=== PATIENT | female | born 1930 | race Hispanic/Latino ===

== ENCOUNTER 2017-11-20 13:37 | Emergency (ER) | payer MEDICARE, MEDICAID ==
[2017-11-20 13:41] VITALS: RESP 18
[2017-11-20 14:41] VITALS: TEMP 98
[2017-11-20 15:14] LABS: BASO % 0.7 % (0.0-2.0); EOS # 0.2 K/uL (0.0-0.7); EOS % 4.2 % (0.0-4.0); HEMOGLOBIN 12.9 g/dL (12.0-16.0); LYMPH # 1.2 K/uL (1.0-4.3); LYMPH % 25.7 % (20.0-40.0); MEAN CELL VOLUME 88.6 fl (81.0-99.0); MEAN CORPUSCULAR HEMOGLOBIN 29.6 pg (27.0-31.0); MEAN CORPUSCULAR HGB CONC 33.4 g/dL (33.0-37.0); MEAN PLATELET VOLUME 9.6 fl (7.2-11.7); MONO # 0.5 K/uL (0.0-0.8); MONO % 11.5 % (0.0-10.0); NEUT # 2.7 K/uL (1.8-7.0); NEUT % 57.9 % (50.0-75.0); NRBC % 0.1 % (0.0-0.0); RBC 4.37 Mil/uL (3.80-5.20); RED CELL DISTRIBUTION WIDTH 14.6 % (11.5-14.5); WHITE BLOOD COUNT 4.7 K/uL (4.8-10.8)
[2017-11-20 15:23] LABS: ALB/GLOB RATIO 1.2 (1.0-2.1); ALBUMIN 3.9 g/dL (3.5-5.0); ALT/SGPT 26 U/L (9-52); AST/SGOT 30 U/L (14-36); BLOOD UREA NITROGEN 21 mg/dl (7-17); CALCIUM 9.6 mg/dL (8.4-10.2); GFR AFRICAN-AMERICAN > 60; GFR NON-AFRICAN AMERICAN > 60
[2017-11-20 15:30] LABS: PROTHROMBIN TIME 11.1 Seconds (9.8-13.1)
--- NOTE | 2017-11-20 16:17 | ED PDOC ---
HPI: Nose Bleed Time Seen by Provider: 11/20/17 13:44 Chief Complaint (Nursing): ENT Problem Chief Complaint (Provider): Nose Bleed History Per: Patient History/Exam Limitations: no limitations Onset/Duration Of Symptoms: Hrs Current Symptoms Are (Timing): Still Present Location Of Bleeding: Right Nare Severity: None Anticoagulant/Antiplatlet Use?: No Additional Complaint(s): 87 year old female presents to the ED with a spontaneous nose bleed in the right nare which began an hour ago. denies trauma, fall, recent blood thinning medication. Patient states that the believes the nose bleed was caused by stress. Past Medical History Reviewed: Historical Data, Nursing Documentation, Vital Signs Vital Signs: Last Vital Signs Temp 98 F 11/20/17 14:41 Pulse 81 11/20/17 14:41 Resp 18 11/20/17 14:41 BP 145/89 11/20/17 14:41 Pulse Ox 97 11/20/17 14:41 - Medical History PMH: Back Problems, Hypercholesterolemia, Hyperlipidemia - Surgical History Surgical History: No Surg Hx - Family History Family History: States: Unknown Family Hx - Living Arrangements Living Arrangements: With Family - Social History Current smoker - smoking cessation education provided: No Ex-Smoker (has not smoked in the last 12 months): No Alcohol: None - Immunization History Hx Tetanus Toxoid Vaccination: No Hx Influenza Vaccination: No - Home Medications Home Medications: Ambulatory Orders Medication Instructions Recorded Acetaminophen [Tylenol] 325 mg PO Q6 PRN #20 tab 06/13/16 Aspirin [Ecotrin] 81 mg PO DAILY 06/13/16 Carvedilol [Coreg] 6.25 mg PO BID 06/13/16 Naproxen [Naprosyn] 500 mg PO BID #20 tab 06/13/16 Rosuvastatin Calcium [Crestor] 20 mg PO HS 06/13/16 Valsartan/Hydrochlorothiazide 1 tab DAILY 06/13/16 [Valsartan-Hctz 320-12.5 mg Tab] metFORMIN [glucOPHAGE] 500 mg PO BID 06/13/16 Sodium Chloride [Saline Mist] 1 spr NS TID #1 bottle 11/20/17 - Allergies Allergies/Adverse Reactions: Allergies Allergy/AdvReac Type Severity Reaction Status Date / Time No Known Allergies Allergy Verified 06/13/16 10:51 Review of Systems ROS Statement: Except As Marked, All Systems Reviewed And Found Negative ENT: Positive for: Other (nose bleed) Physical Exam - Reviewed Nursing Documentation Reviewed: Yes Vital Signs Reviewed: Yes - Physical Exam Appears: Positive for: Non-toxic, No Acute Distress Head Exam: Positive for: ATRAUMATIC, NORMOCEPHALIC Skin: Positive for: Normal Color, Warm, Dry. Negative for: Pallor, Rash Eye Exam: Positive for: Normal appearance, EOMI, PERRL. Negative for: Nystagmus ENT: Positive for: Other (Dried blood in oral pharyn; left nare unremarkable.) Cardiovascular/Chest: Positive for: Regular Rate, Rhythm, Chest Non Tender. Negative for: Tachycardia Respiratory: Positive for: Normal Breath Sounds. Negative for: Wheezing, Respiratory Distress Neurologic/Psych: Positive for: Alert, Oriented - Laboratory Results Result Diagrams: 11/20/17 15:04 11/20/17 15:04 - ECG O2 Sat by Pulse Oximetry: 97 (RA) Medical Decision Making Medical Decision Makin Initial Impression 87 year old female presenting with nose bleed Initial Plan: * CMP * CBC * Partial Thromboplastin * Prothrombin Time * Reevaluation Area of blood visualized with odontoscope. 4.5mm rhinorocket and tamponad placed. Basic blood work will be ordered. Patient states that she is feeling better. Rhinorocket removed and there is no blood in the nare.Patient is medically stable and will be discharged home. Documented by Roxann Andrade acting as a scribe for Zachary Cotton III, DO. All medical record entries made by the Scribe were at my direction and personally dictated by me. I have reviewed the chart and agree that the record accurately reflects my personal performance of the history, physical exam, medical decision making, and the department course for this patient. I have also personally directed, reviewed, and agree with the discharge instructions and disposition. Disposition - Clinical Impression Clinical Impression: Epistaxis - Patient ED Disposition Is Patient to be Admitted: No Counseled Patient/Family Regarding: Studies Performed, Diagnosis - Disposition Referrals: Alex Johnson MD [Staff Provider] - Disposition: Routine/Home Disposition Time: 16:00 Condition: STABLE Additional Instructions: Use humidifier at home/ Return to ER for any worse or new bleeding. Use nasal saline spray 3x daily as directed/. See ENT for followup if bleeding returns, Dr Johnson. Prescriptions: Sodium Chloride [Saline Mist] 1 spr NS TID #1 bottle Instructions: Nosebleed (ED) Forms: [facility] (Romansh) - POA Present On Arrival: None
[2017-11-21 00:42] VITALS: BP 128/72; PULSE 72; O2SAT 99
== END 2017-11-20 17:00 | disposition home or self-care (01) ==
LOC: H.ER 13:37
DX: R04.0 Epistaxis (principal); E78.00 Pure hypercholesterolemia, unspecified; Z79.82 Long term (current) use of aspirin; Z79.84 Long term (current) use of oral hypoglycemic drugs

== ENCOUNTER 2017-11-22 13:59 | Emergency (ER) | payer MEDICARE, MEDICAID ==
[2017-11-22 14:05] VITALS: PULSE 72; TEMP 97.7
--- NOTE | 2017-11-22 14:57 | ED PDOC ---
HPI: CCC, URI, Sore Throat Time Seen by Provider: 11/22/17 14:10 Chief Complaint (Nursing): ENT Problem Chief Complaint (Provider): ENT Problem History Per: Patient History/Exam Limitations: no limitations Onset/Duration Of Symptoms: Hrs (x1 hour) Current Symptoms Are (Timing): Still Present Additional Complaint(s): 87 y/o female presents to the ED complaining of nose bleed from the right nare that started suddenly about an hour ago. She couldnt stop the bleed and thats why came to ED. Reports that had a similar episode about 2 days ago and she came here to get evaluated. A rhino rocket placed for brief period while in ER and she felt better so rocket was removed before discharge. Reports using spray in nose since then including this morning and today was first nose bleed since the last episode. Patient notes that nose bleed maybe due to stress. She also notes that she does not have a heater at home and has been using oven to keep the house warm. Denies taking blood thinners, taking anti-inflammatory medications or bleeding anywhere else. Denies any further medical complaints. PMD: Dr. Pj Pierre Past Medical History Reviewed: Historical Data, Nursing Documentation, Vital Signs Vital Signs: Last Vital Signs Temp 97.7 F 11/22/17 14:02 Pulse 72 11/22/17 14:02 Resp 16 11/22/17 14:02 BP 162/79 H 11/22/17 14:02 Pulse Ox 96 11/22/17 15:31 - Medical History PMH: Back Problems, Diabetes, HTN, Hypercholesterolemia, Hyperlipidemia - Surgical History Surgical History: No Surg Hx - Family History Family History: States: Hypertension - Social History Current smoker - smoking cessation education provided: No Alcohol: None Drugs: Denies - Immunization History Hx Tetanus Toxoid Vaccination: No Hx Influenza Vaccination: No - Home Medications Home Medications: Ambulatory Orders Medication Instructions Recorded Acetaminophen [Tylenol] 325 mg PO Q6 PRN #20 tab 06/13/16 Aspirin [Ecotrin] 81 mg PO DAILY 06/13/16 Carvedilol [Coreg] 6.25 mg PO BID 06/13/16 Naproxen [Naprosyn] 500 mg PO BID #20 tab 06/13/16 Rosuvastatin Calcium [Crestor] 20 mg PO HS 06/13/16 Valsartan/Hydrochlorothiazide 1 tab DAILY 06/13/16 [Valsartan-Hctz 320-12.5 mg Tab] metFORMIN [glucOPHAGE] 500 mg PO BID 06/13/16 Sodium Chloride [Saline Mist] 1 spr NS TID #1 bottle 11/20/17 Phenylephrine 0.5% [Sage-Synephrine 1 spry NS Q12H PRN #1 bottle 11/22/17 0.5% Nasal [place]] - Allergies Allergies/Adverse Reactions: Allergies Allergy/AdvReac Type Severity Reaction Status Date / Time No Known Allergies Allergy Verified 06/13/16 10:51 Review of Systems ROS Statement: Except As Marked, All Systems Reviewed And Found Negative (As per HPI, otherwise negative) ENT: Positive for: Other (Nose bleed) Physical Exam - Reviewed Nursing Documentation Reviewed: Yes Vital Signs Reviewed: Yes - Physical Exam Appears: Positive for: Non-toxic, No Acute Distress Head Exam: Positive for: ATRAUMATIC, NORMOCEPHALIC Skin: Positive for: Warm, Dry. Negative for: Pallor Eye Exam: Positive for: EOMI, PERRL ENT: Positive for: Pharynx Is (posterior pharynx bloody), Other (bilateral erythematous and edematous turbinates with no bleeding at this moment, no discrete source of bleeding). Negative for: Tonsillar Exudate, Tonsillar Swelling Neck: Positive for: Painless ROM, Supple Cardiovascular/Chest: Positive for: Regular Rate, Rhythm Respiratory: Negative for: Accessory Muscle Use, Respiratory Distress Extremity: Positive for: Normal ROM. Negative for: Deformity Lymphatic: Negative for: Adenopathy (cervical) Neurologic/Psych: Positive for: Alert. Negative for: Motor/Sensory Deficits - Laboratory Results Result Diagrams: 11/22/17 15:27 11/22/17 15:27 - ECG O2 Sat by Pulse Oximetry: 96 (RA) Pulse Ox Interpretation: Normal Medical Decision Making Medical Decision Making: Time: 14:37 Initial Impression: Nose Bleed Plan: Type and Screen CMP CBC w/ differential Partial Thromboplastin Time Prothrombin Time IV Insertion (Saline Lock) --Currently nose bleed has stopped will apply pincers on nose --Check labs to assess for blood loss 345p Labs unremarkable On reevaluation, pt's bleeding has not restarted. DW pt use of neosynephrine. Pt did not take her BP meds today. Advised use of neosynephrine after checking that BP is normal. Also needs ENT follow up LISBETH Scribe Attestation: Documented by Amrit Bonilla acting as a scribe for Dara Aggarwal MD. Scribe Attestation: All medical record entries made by the Scribe were at my direction and personally dictated by me. I have reviewed the chart and agree that the record accurately reflects my personal performance of the history, physical exam, medical decision making, and the department course for this patient. I have also personally directed, reviewed, and agree with the discharge instructions and disposition. Disposition - Clinical Impression Clinical Impression: Epistaxis Counseled Patient/Family Regarding: Studies Performed, Diagnosis, Need For Followup, Rx Given - Disposition Referrals: Alex Johnson MD [Staff Provider] - (CALL TODAY TO SETUP FOLLOW UP APPOINTMENT SOON POSSIBLE) Ulysses Pierre DO [[facility]] - (FOLLOW UP WITH YOUR PMD THIS WEEK TO SEE HOW YOU ARE DOING) Disposition: Routine/Home Disposition Time: 15:51 Condition: GOOD Prescriptions: Phenylephrine 0.5% [Sage-Synephrine 0.5% Nasal [place]] 1 spry NS Q12H PRN #1 bottle PRN Reason: Nasal Congestion Instructions: Nosebleed (ED), Phenylephrine (Into the nose)
[2017-11-22 15:31] LABS: BASO % 0.6 % (0.0-2.0); EOS # 0.2 K/uL (0.0-0.7); EOS % 3.5 % (0.0-4.0); HEMOGLOBIN 12.9 g/dL (12.0-16.0); LYMPH # 1.4 K/uL (1.0-4.3); LYMPH % 30.3 % (20.0-40.0); MEAN CELL VOLUME 88.9 fl (81.0-99.0); MEAN CORPUSCULAR HEMOGLOBIN 29.4 pg (27.0-31.0); MEAN CORPUSCULAR HGB CONC 33.1 g/dL (33.0-37.0); MEAN PLATELET VOLUME 9.4 fl (7.2-11.7); MONO # 0.5 K/uL (0.0-0.8); MONO % 11.7 % (0.0-10.0); NEUT # 2.4 K/uL (1.8-7.0); NEUT % 53.9 % (50.0-75.0); NRBC % 0.1 % (0.0-0.0); RBC 4.37 Mil/uL (3.80-5.20); RED CELL DISTRIBUTION WIDTH 14.5 % (11.5-14.5); WHITE BLOOD COUNT 4.5 K/uL (4.8-10.8)
[2017-11-22 15:40] LABS: ALB/GLOB RATIO 1.2 (1.0-2.1); ALBUMIN 4.1 g/dL (3.5-5.0); ALT/SGPT 28 U/L (9-52); AST/SGOT 29 U/L (14-36); BLOOD UREA NITROGEN 17 mg/dl (7-17); CALCIUM 9.5 mg/dL (8.4-10.2); GFR AFRICAN-AMERICAN > 60; GFR NON-AFRICAN AMERICAN > 60
[2017-11-22 15:44] LABS: PARTIAL THROMBOPLASTIN TIME 28.6 Seconds (25.6-37.1); PROTHROMBIN TIME 11.5 Seconds (9.8-13.1)
[2017-11-22 19:37] VITALS: BP 134/78; RESP 18; O2SAT 100
== END 2017-11-22 17:00 | disposition home or self-care (01) ==
LOC: H.ER 13:59
DX: R04.0 Epistaxis (principal); I10 Essential (primary) hypertension; E11.9 Type 2 diabetes mellitus without complications; E78.00 Pure hypercholesterolemia, unspecified; Z79.82 Long term (current) use of aspirin; Z79.84 Long term (current) use of oral hypoglycemic drugs

== ENCOUNTER 2018-01-08 16:37 | Inpatient (IN) | payer MEDICARE, MEDICAID ==
[2018-01-08 16:38] VITALS: BMI 26.1
[2018-01-08] MEDS ORDERED: Morphine 4 MG/ML VIAL IVP STA ×2 (17:48→21:14)
[2018-01-08] MEDS ORDERED: Morphine 4 MG/ML VIAL ONE ×2 (17:50→20:00)
[2018-01-08 18:01] LABS: BASO # 0.1 K/uL (0.0-0.2); EOS # 0.1 K/uL (0.0-0.7); HEMOGLOBIN 13.3 g/dL (12.0-16.0); LYMPH # 1.6 K/uL (1.0-4.3); LYMPH % 24.6 % (20.0-40.0); MEAN CELL VOLUME 89.6 fl (81.0-99.0); MEAN CORPUSCULAR HEMOGLOBIN 29.9 pg (27.0-31.0); MEAN CORPUSCULAR HGB CONC 33.3 g/dL (33.0-37.0); MEAN PLATELET VOLUME 9.5 fl (7.2-11.7); MONO # 0.7 K/uL (0.0-0.8); MONO % 11.2 % (0.0-10.0); NEUT # 4.1 K/uL (1.8-7.0); NEUT % 61.2 % (50.0-75.0); NRBC % 0.1 % (0.0-0.0); RBC 4.46 Mil/uL (3.80-5.20); RED CELL DISTRIBUTION WIDTH 14.6 % (11.5-14.5); WHITE BLOOD COUNT 6.6 K/uL (4.8-10.8)
[2018-01-08 18:10] LABS: ALB/GLOB RATIO 1.1 (1.0-2.1); ALBUMIN 4.3 g/dL (3.5-5.0); CALCIUM 9.9 mg/dL (8.4-10.2); GFR AFRICAN-AMERICAN > 60; GFR NON-AFRICAN AMERICAN > 60
[2018-01-08 18:15] LABS: ALT/SGPT 22 U/L (9-52); AST/SGOT 37 U/L (14-36); BLOOD UREA NITROGEN 19 mg/dl (7-17)
--- NOTE | 2018-01-08 18:20 | ED PDOC ---
Lower Extremity Pain/Injury Time Seen by Provider: 01/08/18 16:46 Chief Complaint (Nursing): Lower Extremity Problem/Injury Chief Complaint (Provider): Left Leg Pain History Per: Patient History/Exam Limitations: no limitations Onset/Duration Of Symptoms: Sudden Onset Current Symptoms Are (Timing): Still Present Additional Complaint(s): 87 year old female presents to the emergency department post fall complaining of left leg pain. The patient states that she fell while stepping off of the sidewalk and immediately felt a sudden onset of pain. She reports that she also hit her head against her eye glasses. Denies loss of consciousness. As per patient, bystanders helped her up and helped her to cross the street then she got on the bus and went home. She reports that while at home she noticed increased pain and swelling to the left leg and hs ewas unable to walk on the leg. Denies numbness, weakness. PMD: Dr. Pj Pierre Past Medical History Reviewed: Historical Data, Nursing Documentation, Vital Signs Vital Signs: Last Vital Signs Temp 96.9 F L 01/08/18 16:39 Pulse 78 01/08/18 16:39 Resp 16 01/08/18 16:39 BP 162/93 H 01/08/18 16:39 Pulse Ox 100 01/08/18 16:39 - Medical History PMH: Back Problems, Diabetes, HTN, Hypercholesterolemia, Hyperlipidemia - Surgical History Surgical History: No Surg Hx - Family History Family History: States: Hypertension - Social History Current smoker - smoking cessation education provided: No Ex-Smoker (has not smoked in the last 12 months): No Alcohol: None Drugs: Denies - Immunization History Hx Tetanus Toxoid Vaccination: No Hx Influenza Vaccination: No - Home Medications Home Medications: Ambulatory Orders Medication Instructions Recorded Carvedilol [Coreg] 6.25 mg PO BID 06/13/16 Rosuvastatin Calcium [Crestor] 20 mg PO HS 06/13/16 Valsartan/Hydrochlorothiazide 1 tab PO DAILY 06/13/16 [Valsartan-Hctz 320-12.5 mg Tab] metFORMIN [glucOPHAGE] 500 mg PO DAILY 06/13/16 - Allergies Allergies/Adverse Reactions: Allergies Allergy/AdvReac Type Severity Reaction Status Date / Time No Known Allergies Allergy Verified 11/27/17 14:01 Review of Systems ROS Statement: Except As Marked, All Systems Reviewed And Found Negative Musculoskeletal: Positive for: Leg Pain (left) Physical Exam - Reviewed Nursing Documentation Reviewed: Yes Vital Signs Reviewed: Yes - Physical Exam Appears: Positive for: In Acute Distress (moderate painful) Head Exam: Negative for: ATRAUMATIC (small abrasion on left temporal forehead with early contusion) Skin: Positive for: Warm, Dry Eye Exam: Positive for: EOMI, PERRL ENT: Negative for: Pharyngeal Erythema, Tonsillar Exudate Neck: Positive for: Painless ROM, Supple Cardiovascular/Chest: Positive for: Regular Rate, Rhythm. Negative for: Murmur Respiratory: Positive for: Normal Breath Sounds. Negative for: Wheezing Gastrointestinal/Abdominal: Positive for: Soft. Negative for: Tenderness Back: Positive for: Normal Inspection. Negative for: Decreased ROM Extremity: Positive for: Other (gross marked edema to superior aspect of left lower extremity-tenderness to palpation at site; No tenderness to palpation of patellar or laxity.). Negative for: Normal ROM (flexion and extension at knee elicits exquisite pain) Lymphatic: Negative for: Adenopathy Neurologic/Psych: Positive for: Alert. Negative for: Motor/Sensory Deficits - Laboratory Results Result Diagrams: 01/08/18 17:05 01/08/18 17:49 - ECG O2 Sat by Pulse Oximetry: 100 (RA) Pulse Ox Interpretation: Normal Medical Decision Making Medical Decision Makin Initial Impression 87 y/o female presenting with left lower leg injury r/o fracture Vs. Strain Vs. Calf Tear vs hematoma Initial Plan: * Type and Screen * CT EXT lower w/o Contrast * CMP * Creatinine Phosphokinase * CBC * Partial thromboplastin * Prothrombin Time * RAD LT Knee * Morphine 4mg IVP * Tylenol 975mg PO * RAD Tibia Fibula LT * Reevaluation 1900 Pt reporting minimal relief with IV morphine. Increasing swelling and pain. Concern for compartment syndrome. Consulted Dr Sears who evaluated pt in ER and performed compartment pressure measurements and attempt of needle aspiration of hematoma. 2036 EXAM: CT Left Lower Extremity Without Intravenous Contrast CLINICAL HISTORY: 87 years old, female; Signs and symptoms; Other: R/O FX; Additional info: Left knee/tibia/fibula injury R/O fracture TECHNIQUE: Axial computed tomography images of the left lower extremity without intravenous contrast. All CT scans at this facility use one or more dose reduction techniques, viz.: automated exposure control; ma/kV adjustment per patient size (including targeted exams where dose is matched to indication; i.e. head); or iterative reconstruction technique. Coronal and sagittal reformatted images were created and reviewed. COMPARISON: CR - TIBIA FIBULA LEFT 2018-01-08 16:56 FINDINGS: Bones/joints: No acute fracture. No dislocation. No significant knee joint effusion. Soft tissues: Large hematoma along lower leg, roughly 8.8 x 5.7 x 17.5 cm. Moderate stranding within adjacent soft tissues. Varicosities. Minimal atherosclerotic calcifications. IMPRESSION: 1. No fracture. 2. Soft tissue hematoma. Suggest followup to resolution to exclude underlying pathology. Pt to be hospitalized for reevaluation of possible expanding hematoma. [facility]. Documented by Roxann Andrade acting as a scribe for Dara Aggarwal MD. All medical record entries made by the Scribe were at my direction and personally dictated by me. I have reviewed the chart and agree that the record accurately reflects my personal performance of the history, physical exam, medical decision making, and the department course for this patient. I have also personally directed, reviewed, and agree with the discharge instructions and disposition. Disposition - Clinical Impression Clinical Impression: Hematoma of left lower extremity, Intractable pain Counseled Patient/Family Regarding: Studies Performed, Diagnosis - Disposition Disposition Time: 19:45 Condition: GUARDED - Pt Status Changed To: Hospital Disposition Of: Observation - POA Present On Arrival: Falls Or Trauma
[2018-01-08 18:33] LABS: PARTIAL THROMBOPLASTIN TIME 28.2 Seconds (25.6-37.1); PROTHROMBIN TIME 11.6 Seconds (9.8-13.1)
[2018-01-08] MEDS ORDERED: Povidone Iodine Topical 10% Sol ONE (20:00)
[2018-01-08] MEDS ORDERED: Lidocaine 1% Inj (20ml) ONE (20:09)
[2018-01-08] MEDS ORDERED: ceFAZolin 1 GM in Sodium Chloride 0.9% 100 ML IV STA (20:22)
--- NOTE | 2018-01-08 20:37 | CT ---
EXAM: CT Left Lower Extremity Without Intravenous Contrast CLINICAL HISTORY: 87 years old, female; Signs and symptoms; Other: R/O FX; Additional info: Left knee/tibia/fibula injury R/O fracture TECHNIQUE: Axial computed tomography images of the left lower extremity without intravenous contrast. All CT scans at this facility use one or more dose reduction techniques, viz.: automated exposure control; ma/kV adjustment per patient size (including targeted exams where dose is matched to indication; i.e. head); or iterative reconstruction technique. Coronal and sagittal reformatted images were created and reviewed. COMPARISON: CR - TIBIA FIBULA LEFT 2018-01-08 16:56 FINDINGS: Bones/joints: No acute fracture. No dislocation. No significant knee joint effusion. Soft tissues: Large hematoma along lower leg, roughly 8.8 x 5.7 x 17.5 cm. Moderate stranding within adjacent soft tissues. Varicosities. Minimal atherosclerotic calcifications. IMPRESSION: 1. No fracture. 2. Soft tissue hematoma. Suggest followup to resolution to exclude underlying pathology.
--- NOTE | 2018-01-08 21:26 | CP.PCM.CON ---
History of Present Illness - History of Present Illness History of Present Illness: ID: 87 yo female CC: fall on L lower extremity, with evidence of non expansile hematoma HPI- ptsustained a fall off the curb earlier today. Ptpresents to [facility] ER with evidence of discomfort L foreleg, and evidence of hematoma in lateral compartment. pt presents at this encounter with her sons; Pts pain is well controlled PAIN IS NOT OUT OF PROPORTIONAND THERE IS no INCREASED PAIN WITH PASSIVE FLEXION/DORSIFLEXION OF THE l ANKLE. CALLED BY dR Robledo TO [facility] IN er, Past Patient History - Infectious Disease Hx of Infectious Diseases: None - Past Social History Alcohol: None Drugs: Denies - CARDIAC Hx Hypercholesterolemia: Yes Hx Hypertension: Yes - ENDOCRINE/METABOLIC Hx Diabetes Mellitus Type 2: Yes - PSYCHIATRIC Hx Substance Use: No - SURGICAL HISTORY Hx Surgeries: No - ANESTHESIA Hx Anesthesia: No Hx Anesthesia Reactions: No Meds Allergies/Adverse Reactions: Allergies Allergy/AdvReac Type Severity Reaction Status Date / Time No Known Allergies Allergy Verified 11/27/17 14:01 - Medications Medications: Current Medications Cefazolin Sodium 1 gm/ Sodium (Chloride) 100 mls @ 100 mls/hr IV STAT STA PRN Reason: Protocol Stop: 01/08/18 21:21 Last Admin: 01/08/18 20:29 Dose: 100 mls/hr Morphine Sulfate (Morphine) 4 mg IVP STAT STA Stop: 01/08/18 19:51 Last Admin: 01/08/18 21:05 Dose: 4 mg Physical Exam - Additional Findings Additional findings: sYSTEMIC EXAM- WNL mUSCULOSKELTAL STANCE/GAIT- DEFRRED PT WITH SWELLING ON PROX TO MID LATERAL ASPECT OF l FORELEG n/v INTACT DORSALIS PEDIS PULSE PALPABLE NO INCREASED PAIN ON PASSIVE FLEXION/DORSIFLEXION Results - Vital Signs Recent Vital Signs: Last Vital Signs Temp 96.9 F L 01/08/18 16:39 Pulse 61 01/08/18 20:50 Resp 18 01/08/18 20:50 BP 135/88 01/08/18 20:50 Pulse Ox 97 01/08/18 20:50 - Labs Result Diagrams: 01/08/18 17:05 01/08/18 17:49 Labs: Laboratory Results - last 24 hr 01/08/18 01/08/18 01/08/18 17:05 17:40 17:49 WBC 6.6 RBC 4.46 Hgb 13.3 Hct 39.9 MCV 89.6 MCH 29.9 MCHC 33.3 RDW 14.6 H Plt Count 194 MPV 9.5 Neut % (Auto) 61.2 Lymph % (Auto) 24.6 [place] % (Auto) 11.2 H Eos % (Auto) 2.0 Baso % (Auto) 1.0 Neut # (Auto) 4.1 Lymph # (Auto) 1.6 [place] # (Auto) 0.7 Eos # (Auto) 0.1 Baso # (Auto) 0.1 PT INR APTT Sodium 144 Potassium 4.1 Chloride 107 Carbon Dioxide 25 Anion Gap 16 BUN 19 H Creatinine 0.6 L Est GFR ( Amer) > 60 Est GFR (Non-Af Amer) > 60 POC Glucose (mg/dL) Random Glucose 93 Calcium 9.9 Total Bilirubin 0.8 AST 37 H D ALT 22 Alkaline Phosphatase 64 Total Creatine Kinase 77 Total Protein 8.3 H Albumin 4.3 Globulin 4.0 H Albumin/Globulin Ratio 1.1 Blood Type O POSITIVE Antibody Screen Negative BBK History Checked Patient has bt 01/08/18 01/08/18 17:49 19:40 WBC RBC Hgb Hct MCV MCH MCHC RDW Plt Count MPV Neut % (Auto) Lymph % (Auto) [place] % (Auto) Eos % (Auto) Baso % (Auto) Neut # (Auto) Lymph # (Auto) [place] # (Auto) Eos # (Auto) Baso # (Auto) PT 11.6 INR 1.0 APTT 28.2 Sodium Potassium Chloride Carbon Dioxide Anion Gap BUN Creatinine Est GFR ( Amer) Est GFR (Non-Af Amer) POC Glucose (mg/dL) 88 Random Glucose Calcium Total Bilirubin AST ALT Alkaline Phosphatase Total Creatine Kinase Total Protein Albumin Globulin Albumin/Globulin Ratio Blood Type Antibody Screen BBK History Checked - Impressions Impression: xRAY- EVIDENCE OF SOFT TISSUE SWELLING NO GALEN FRACTURE OR DISLOCATION ct RESULTS- REVEAL EVIDENCE OF LARGE HEMATOMA WITHOUT FX + Assessment & Plan - Assessment and Plan (Free Text) Assessment: A- soft tissue hematoma/ no evidence for fx P- Under sterile conditions, after having obtained informed consent, compartment pressure monitoring was obtained in the anterior, lateral, and superficial and deep posterior comparmtnets of the L foreleg. Using the [employer] compartment pressure monitor, and after euilibrating the device to 0mm hg prior to each measurement, the comparmtnet pressures were essentially within normal limits ( anterior comptment-14mm/ lateral compartment, after accurate [id number] / approx 29mm/ posterior compartment approx 24 mm hg The compartment pressure readins agree wth the clinical findings which are: negative for acute compartment syndrome. No increase pain on passive flexion/ dorsiflexion/ pulses palpl;e /good capillary refill Pt without exqusite tenderness or with pain out of proportion IMP_ hematoma L foreleg- compression wrap applied, ice/possibility of incision/ drainage of hematoma discussed with family, after medical clearance and stabilization
--- NOTE | 2018-01-08 22:37 | US ---
EXAM: US Duplex Left Lower Extremity Veins CLINICAL HISTORY: 87 years old, female; Injury or trauma; Fall; Initial encounter; Puncture wound; Left; Lower extremity, lower leg level; Vessel not specified; Injury date: 01/08/2018; Additional info: Pain/swelling TECHNIQUE: Real-time ultrasound scan of the veins of the left lower extremity with color Doppler flow, spectral waveform analysis and compression. COMPARISON: No relevant prior studies available. FINDINGS: Deep veins: Normal color and spectral Doppler flow. Normal compressibility. No deep vein thrombosis from common femoral to popliteal vein. Superficial veins: No thrombosis. Soft tissues: No popliteal cyst. IMPRESSION: 1. No evidence of DVT within LEFT lower extremity.
--- NOTE | 2018-01-08 22:40 | US ---
EXAM: US Duplex Left Upper Extremity Arteries CLINICAL HISTORY: 87 years old, female; Injury or trauma; Fall; Initial encounter; Wound, open; Left; Lower extremity, lower leg level; Vessel not specified; Injury date: ; Additional info: Pain/swelling TECHNIQUE: Real-time ultrasound scan of the arteries of the left upper extremity with 2-D gongora scale, color Doppler flow and spectral waveform analysis. COMPARISON: No relevant prior studies available. FINDINGS: [employer]: 104 cm/s, triphasic SFA proximal: 89 cm/s, triphasic SFA mid: 70 cm/s, triphasic SFA distal: 71 cm/s, triphasic Popliteal: 70 cm/s, triphasic GURU: 50 cm/s, triphasic DRAWING IN HAND: 73 cm/s, triphasic DPA: 45 cm/s, triphasic IMPRESSION: No occlusion or significant stenosis.
[2018-01-09] MEDS ORDERED: Oxycodone/Acetaminophen 5/325 mg Tab PO PRN (00:18)
[2018-01-09] MEDS: Insulin Lispro (humaLOG) 100 Units/ml Inj SC SCH ×4 (07:06→22:40)
[2018-01-09 08:19] LABS: ALB/GLOB RATIO 1.1 (1.0-2.1); ALBUMIN 3.8 g/dL (3.5-5.0); ALT/SGPT 23 U/L (9-52); AST/SGOT 25 U/L (14-36); BLOOD UREA NITROGEN 18 mg/dl (7-17); CALCIUM 9.5 mg/dL (8.4-10.2); GFR AFRICAN-AMERICAN > 60; GFR NON-AFRICAN AMERICAN > 60
[2018-01-09 08:27] LABS: HEMOGLOBIN 11.6 g/dL (12.0-16.0); MEAN CELL VOLUME 89.1 fl (81.0-99.0); MEAN CORPUSCULAR HEMOGLOBIN 29.7 pg (27.0-31.0); MEAN CORPUSCULAR HGB CONC 33.3 g/dL (33.0-37.0); RBC 3.92 Mil/uL (3.80-5.20); RED CELL DISTRIBUTION WIDTH 14.1 % (11.5-14.5); WHITE BLOOD COUNT 6.4 K/uL (4.8-10.8)
[2018-01-09 08:30] LABS: INR 1.1 (0.9-1.2); PARTIAL THROMBOPLASTIN TIME 27.6 Seconds (25.6-37.1)
--- NOTE | 2018-01-09 08:58 | RAD ---
HISTORY: Evaluation COMPARISON: No prior. FINDINGS: LUNGS: Elevation right hemidiaphragm possibly due to eventration. Suspect bibasilar atelectasis. PLEURA: No significant pleural effusion identified, no pneumothorax apparent. CARDIOVASCULAR: Normal. OSSEOUS STRUCTURES: No significant abnormalities. VISUALIZED UPPER ABDOMEN: Normal. OTHER FINDINGS: None. IMPRESSION: Elevation right hemidiaphragm possibly due to eventration. Suspect bibasilar atelectasis.
--- NOTE | 2018-01-09 09:16 | RAD ---
PROCEDURE: Left Knee Radiographs. HISTORY: Pain. COMPARISON: None. FINDINGS: BONES: No evidence of acute displaced fracture nor dislocation. JOINTS: Mild degenerative osteoarthritis. Prominent anterior superior and anterior inferior patella enthesophyte. JOINT EFFUSION: No significant suprapatellar joint effusion OTHER FINDINGS: None. IMPRESSION: Mild DJD. No evidence of acute displaced fracture nor dislocation.
--- NOTE | 2018-01-09 09:20 | RAD ---
PROCEDURE: Radiographs of the left tibia and fibula. HISTORY: LEFT leg pain s/p fall COMPARISON: None available. TECHNIQUE: Frontal and lateral views obtained. FINDINGS: BONES: No fracture or destructive lesion. JOINT SPACES: Mild degenerative changes right knee and ankle. OTHER FINDINGS: There appears to be some mild infiltration changes within the subcutaneous tissues possibly related to trauma. Rule out cellulitis or edema related to vascular etiology. Clinical correlation recommended IMPRESSION: No evidence of acute displaced fracture nor dislocation. Mild infiltration changes subcutaneous tissues could be related to trauma. Clinical correlation recommended as detailed above.
--- NOTE | 2018-01-09 10:55 | CP.PCM.HP ---
History of Present Illness - History of Present Illness History of Present Illness: CC: Fall History of Present Illness: An 87 year old female with H/O HTN, DMII and dyslipidemia presents to the emergency department post fall complaining of left leg pain. The patient states that she fell while stepping of the sidewalk and immediately felt a sudden onset of pain. She reports that she also hit her head against her eye glasses. Denies loss of consciousness. As per patient, bystanders helped her up and helped her to cross the street then she got on the bus and went home. She reports that while at home she noticed increased pain and swelling to the left leg and she was unable to walk on the leg. Denies numbness, weakness. Present on Admission - Present on Admission Any Indicators Present on Admission: No Review of Systems - Review of Systems All systems: reviewed and no additional remarkable complaints except - Musculoskeletal Musculoskeletal: As Per HPI Past Patient History - Infectious Disease Hx of Infectious Diseases: None - Past Medical History & Family History Past Medical History?: Yes Past Family History: Reviewed and not pertinent - Past Social History Smoking Status: Never Smoked Alcohol: None Drugs: Denies - CARDIAC Hx Cardiac Disorders: Yes Hx Hypercholesterolemia: Yes Hx Hypertension: Yes - PULMONARY Hx Respiratory Disorders: No - NEUROLOGICAL Hx Neurological Disorder: No - HEENT Hx HEENT Problems: No - RENAL Hx Chronic Kidney Disease: No - ENDOCRINE/METABOLIC Hx Endocrine Disorders: Yes Hx Diabetes Mellitus Type 2: Yes - HEMATOLOGICAL/ONCOLOGICAL Hx Blood Disorders: No - INTEGUMENTARY Hx Dermatological Problems: No - MUSCULOSKELETAL/RHEUMATOLOGICAL Hx Musculoskeletal Disorders: Yes Hx Back Pain: Yes Hx Falls: Yes - GASTROINTESTINAL Hx Gastrointestinal Disorders: No - GENITOURINARY/GYNECOLOGICAL Hx Genitourinary Disorders: No - PSYCHIATRIC Hx Psychophysiologic Disorder: No Hx Substance Use: No - SURGICAL HISTORY Hx Surgeries: No - ANESTHESIA Hx Anesthesia: No Hx Anesthesia Reactions: No Hx Malignant Hyperthermia: No Meds Allergies/Adverse Reactions: Allergies Allergy/AdvReac Type Severity Reaction Status Date / Time No Known Allergies Allergy Verified 11/27/17 14:01 Physical Exam - Constitutional Appears: No Acute Distress, In Acute Distress - Head Exam Head Exam: ATRAUMATIC, NORMAL INSPECTION, NORMOCEPHALIC - Eye Exam Eye Exam: EOMI, Normal appearance, PERRL Pupil Exam: NORMAL ACCOMODATION, PERRL - ENT Exam ENT Exam: Mucous Membranes Moist, Normal Exam - Neck Exam Neck exam: Positive for: Full Rom, Normal Inspection - Respiratory Exam Respiratory Exam: Clear to Auscultation Bilateral, NORMAL BREATHING PATTERN - Cardiovascular Exam Cardiovascular Exam: REGULAR RHYTHM, +S1, +S2 - GI/Abdominal Exam GI & Abdominal Exam: Normal Bowel Sounds, Soft. absent: Tenderness - Extremities Exam Additional comments: Swelling of the Left Leg with Compression bandage, and Immobilized with Intact Neuro-vacular function distally. - Back Exam Back exam: NORMAL INSPECTION - Neurological Exam Neurological exam: Alert, CN II-XII Intact, Normal Gait, Oriented x3, Reflexes Normal - Psychiatric Exam Psychiatric exam: Normal Affect, Normal Mood - Skin Skin Exam: Dry, Intact, Normal Color, Warm Results - Vital Signs Recent Vital Signs: Last Vital Signs Temp 98 F 01/09/18 08:34 Pulse 67 01/09/18 10:10 Resp 20 01/09/18 08:34 BP 131/65 01/09/18 10:10 Pulse Ox 96 01/09/18 08:34 - Labs Result Diagrams: 01/09/18 06:55 01/09/18 06:55 Labs: Laboratory Results - last 24 hr 01/08/18 01/08/18 01/08/18 17:05 17:40 17:49 WBC 6.6 RBC 4.46 Hgb 13.3 Hct 39.9 MCV 89.6 MCH 29.9 MCHC 33.3 RDW 14.6 H Plt Count 194 MPV 9.5 Neut % (Auto) 61.2 Lymph % (Auto) 24.6 Dixie % (Auto) 11.2 H Eos % (Auto) 2.0 Baso % (Auto) 1.0 Neut # (Auto) 4.1 Lymph # (Auto) 1.6 Dixie # (Auto) 0.7 Eos # (Auto) 0.1 Baso # (Auto) 0.1 PT INR APTT Sodium 144 Potassium 4.1 Chloride 107 Carbon Dioxide 25 Anion Gap 16 BUN 19 H Creatinine 0.6 L Est GFR ( Amer) > 60 Est GFR (Non-Af Amer) > 60 POC Glucose (mg/dL) Random Glucose 93 Calcium 9.9 Magnesium Total Bilirubin 0.8 AST 37 H D ALT 22 Alkaline Phosphatase 64 Total Creatine Kinase 77 Total Protein 8.3 H Albumin 4.3 Globulin 4.0 H Albumin/Globulin Ratio 1.1 Blood Type O POSITIVE Antibody Screen Negative BBK History Checked Patient has bt 03/24/18 03/24/18 03/25/18 17:49 19:40 06:55 WBC 6.4 RBC 3.92 Hgb 11.6 L Hct 35.0 MCV 89.1 MCH 29.7 MCHC 33.3 RDW 14.1 Plt Count 172 MPV Neut % (Auto) Lymph % (Auto) Dixie % (Auto) Eos % (Auto) Baso % (Auto) Neut # (Auto) Lymph # (Auto) Dixie # (Auto) Eos # (Auto) Baso # (Auto) PT 11.6 INR 1.0 APTT 28.2 Sodium Potassium Chloride Carbon Dioxide Anion Gap BUN Creatinine Est GFR ( Amer) Est GFR (Non-Af Amer) POC Glucose (mg/dL) 88 Random Glucose Calcium Magnesium Total Bilirubin AST ALT Alkaline Phosphatase Total Creatine Kinase Total Protein Albumin Globulin Albumin/Globulin Ratio Blood Type Antibody Screen BBK History Checked 01/09/18 01/09/18 06:55 06:55 WBC RBC Hgb Hct MCV MCH MCHC RDW Plt Count MPV Neut % (Auto) Lymph % (Auto) Dixie % (Auto) Eos % (Auto) Baso % (Auto) Neut # (Auto) Lymph # (Auto) Dixie # (Auto) Eos # (Auto) Baso # (Auto) PT 12.0 INR 1.1 APTT 27.6 Sodium 142 Potassium 3.8 Chloride 105 Carbon Dioxide 27 Anion Gap 14 BUN 18 H Creatinine 0.6 L Est GFR ( Amer) > 60 Est GFR (Non-Af Amer) > 60 POC Glucose (mg/dL) Random Glucose 121 H Calcium 9.5 Magnesium 1.9 Total Bilirubin 0.7 AST 25 ALT 23 Alkaline Phosphatase 57 Total Creatine Kinase Total Protein 7.1 Albumin 3.8 Globulin 3.4 Albumin/Globulin Ratio 1.1 Blood Type Antibody Screen BBK History Checked - EKG Data EKG Interpreted by: Myself EKG shows normal: Sinus rhythm, [place], Intervals, QRS complexes, ST-T waves Rate: Bradycardia - Imaging and Cardiology CT Left Leg: Status: Report reviewed by me Additional comment: FINDINGS: Bones/joints: No acute fracture. No dislocation. No significant knee joint effusion. Soft tissues: Large hematoma along lower leg, roughly 8.8 x 5.7 x 17.5 cm. Moderate stranding within adjacent soft tissues. Varicosities. Minimal atherosclerotic calcifications. IMPRESSION: 1. No fracture. 2. Soft tissue hematoma. Suggest followup to resolution to exclude underlying pathology. Chest x-ray Status: Report reviewed by me Additional comment: MPRESSION: Elevation right hemidiaphragm possibly due to eventration. Suspect bibasilar atelectasis. Assessment & Plan (1) Hematoma of left lower extremity Assessment and Plan: Neurovascular Check Q2hrs Pain Control For Incision and Evacuation of Large Hematoma by rtho Ortho input appreciated Cleared for the Surgery with Acceptable Risk Status: Acute Priority: Medium (2) Intractable pain Assessment and Plan: IV Morphin PRN Status: Acute Priority: Low (3) Diabetes mellitus Status: Chronic (4) Hypertension Status: Chronic (5) Dyslipidemia Status: Chronic Priority: Low
--- NOTE | 2018-01-09 12:43 | CARD ---
APPROVED REPORT EKG Measurement Heart [id number] <Conclusion> Sinus bradycardia Moderate voltage criteria for LVH, may be normal variant Borderline ECG
[2018-01-10 05:51] LABS: HEMOGLOBIN 11.5 g/dL (12.0-16.0); MEAN CELL VOLUME 88.8 fl (81.0-99.0); MEAN CORPUSCULAR HEMOGLOBIN 30.2 pg (27.0-31.0); RBC 3.8 Mil/uL (3.80-5.20); RED CELL DISTRIBUTION WIDTH 14.2 % (11.5-14.5); WHITE BLOOD COUNT 6.9 K/uL (4.8-10.8)
[2018-01-10 06:14] LABS: BLOOD UREA NITROGEN 22 mg/dl (7-17); CALCIUM 9.6 mg/dL (8.4-10.2); GFR AFRICAN-AMERICAN > 60; GFR NON-AFRICAN AMERICAN > 60
[2018-01-10 06:15] LABS: ALBUMIN 3.7 g/dL (3.5-5.0); ALT/SGPT 25 U/L (9-52); AST/SGOT 23 U/L (14-36)
[2018-01-10] MEDS: Insulin Lispro (humaLOG) 100 Units/ml Inj SC SCH ×4 (07:06→23:00)
[2018-01-10] MEDS ORDERED: Propofol 10 mg/ml Inj (20 ML) ONE (11:26)
[2018-01-10] MEDS ORDERED: Lidocaine 1% 5ml Abboject IV ONE (11:27)
[2018-01-10] MEDS ORDERED: MethylPREDNISolone Depo 40 mg/ml Inj ONE (11:54)
[2018-01-10] MEDS ORDERED: Bupivacaine 0.5% Inj(30mL) ONE (11:55)
[2018-01-10] MEDS ORDERED: Lidocaine 1% Inj (20ml) ONE (11:55)
[2018-01-10] MEDS ORDERED: Bacitracin Ointment 30 GM TUBE ONE (11:56)
[2018-01-10] MEDS ORDERED: ePHEDrine 50 mg/ml Inj ONE (13:04)
[2018-01-10] MEDS ORDERED: Desflurane Inhalation Anesthetic Liq (240 ml) ONE (13:08)
[2018-01-10] MEDS ORDERED: Lactated Ringer's 1,000 ML IV ONE (13:19)
[2018-01-10] MEDS ORDERED: Sodium Chloride 0.9% 3,000 ML IV ONE (13:40)
[2018-01-10] MEDS: Morphine 4 MG/ML VIAL IVP PRN ×3 (14:45→22:00)
--- NOTE | 2018-01-10 15:45 | PCM.SURG1 ---
Surgeon's Initial Post Op Note - Surgeon's Notes Surgeon: Renu Engineer Intern: PREMA Velasco/2nd assist Dannie Palafox Type of Anesthesia: General Endo Anesthesia Administered By: DR Galvan Pre-Operative Diagnosis: Hematioma L foreleg- NO ESTABLISHED COMPARTEMNT SYNDROME(NEGATIVE COMPARTMENT PRESSURES) Operative Findings: ABOVE large non expansile hematoma Post-Operative Diagnosis: as above Operation Performed: Fasciotomy- 4 compartment. incision/drainage L foreleg hematoma. applx knee [id number] Specimen/Specimens Removed: large hematoma Estimated Blood Loss: EBL {In ML}: 75 Blood Products Given: N/A Drains Used: No Drains Post-Op Condition: Good Date of Surgery/Procedure: 01/10/18 Time of Surgery/Procedure: 13:35 (time in room/anaesthesia indcution time 1230)
[2018-01-10] MEDS: Lactated Ringer's 1,000 ML IV SCH (17:24)
--- NOTE | 2018-01-10 18:55 | CP.PCM.PN ---
Subjective - Date & Time of Evaluation Date of Evaluation: 01/10/18 Time of Evaluation: 11:45 - Subjective Subjective: Seen and examined in the OR waiting room for Hematoma Evacuation. Continue to complain Pain, severe with no pain or numbness distal to the hematoma site. Objective - Vital Signs/Intake and Output Vital Signs (last 24 hours): Temp Pulse Resp BP Pulse Ox 97.7 F 68 20 115/69 94 L 01/10/18 16:44 01/10/18 17:26 01/10/18 16:44 01/10/18 17:26 01/10/18 16:44 Intake and Output: 01/10/18 01/10/18 06:59 18:59 Intake Total 1200 5320 Output Total 670 Balance 1200 4650 - Medications Medications: Current Medications Acetaminophen (Tylenol 325mg Tab) 650 mg PO Q4 PRN PRN Reason: Fever 101 degrees fahrenheit Atorvastatin Calcium (Lipitor) 40 mg PO HS [facility] Last Admin: 01/09/18 21:24 Dose: 40 mg Carvedilol (Coreg) 6.25 mg PO BID [facility] Last Admin: 01/10/18 17:26 Dose: 6.25 mg Hydrochlorothiazide (Microzide) 12.5 mg PO DAILY [facility] Last Admin: 01/10/18 11:30 Dose: Not Given Lactated Ringer's (Lactated Ringer's) 1,000 mls @ 50 mls/hr IV .Q20H [facility] Last Admin: 01/10/18 17:24 Dose: 50 mls/hr Insulin Human Lispro (Humalog) 0 units SC ACCU-CHECK [facility] PRN Reason: Protocol Last Admin: 01/10/18 17:24 Dose: Not Given Metformin HCl (Glucophage) 500 mg PO DAILY [facility] Last Admin: 01/10/18 11:14 Dose: Not Given Morphine Sulfate (Morphine) 2 mg IVP Q4 PRN PRN Reason: Pain, severe (8-10) Last Admin: 01/09/18 20:12 Dose: 2 mg Ondansetron HCl (Zofran Inj) 4 mg IVP ONCE PRN PRN Reason: Nausea/Vomiting Oxycodone/Acetaminophen (Percocet 5/325 Mg Tab) 1 tab PO Q4 PRN PRN Reason: Pain, moderate (4-7) Stop: 01/12/18 00:19 Valsartan (Diovan) 320 mg PO DAILY [facility] Last Admin: 01/10/18 11:29 Dose: Not Given - Labs Labs: 01/10/18 04:20 01/10/18 04:20 PT 12.0 Seconds (9.8-13.1) 01/09/18 06:55 INR 1.1 (0.9-1.2) 01/09/18 06:55 APTT 27.6 Seconds (25.6-37.1) 01/09/18 06:55 - Constitutional Appears: No Acute Distress - Head Exam Head Exam: ATRAUMATIC, NORMAL INSPECTION, NORMOCEPHALIC - Eye Exam Eye Exam: EOMI, Normal appearance, PERRL Pupil Exam: NORMAL ACCOMODATION, PERRL - ENT Exam ENT Exam: Mucous Membranes Moist, Normal Exam - Neck Exam Neck Exam: Full ROM, Normal Inspection. absent: Lymphadenopathy - Respiratory Exam Respiratory Exam: Clear to Ausculation Bilateral, NORMAL BREATHING PATTERN - Cardiovascular Exam Cardiovascular Exam: REGULAR RHYTHM, +S1, +S2. absent: Murmur - GI/Abdominal Exam GI & Abdominal Exam: Soft, Normal Bowel Sounds. absent: Tenderness - Extremities Exam Extremities Exam: absent: Joint Swelling, Pedal Edema Additional comments: Left leg Large Hematoma after a fall. - Back Exam Back Exam: NORMAL INSPECTION - Neurological Exam Neurological Exam: Alert, Awake, CN II-XII Intact, Normal Gait, Oriented x3 - Psychiatric Exam Psychiatric exam: Normal Affect, Normal Mood - Skin Skin Exam: Dry, Intact, Normal Color, Warm Assessment and Plan (1) Hematoma of left lower extremity Assessment & Plan: For Hematoma Evacuation today. Status: Acute (2) Intractable pain Status: Acute (3) Diabetes mellitus Status: Chronic (4) Hypertension Status: Chronic (5) Dyslipidemia Status: Chronic
--- NOTE | 2018-01-10 21:48 | OP ---
PROCEDURE DATE: 01/10/2018 PREOPERATIVE DIAGNOSIS: Hematoma of left lateral aspect of the foreleg, rule out compartment bleed. POSTOPERATIVE DIAGNOSIS: Hematoma of left lateral aspect of the foreleg, rule out compartment bleed. PROCEDURE. 1. Incision and drainage of the hematoma. 2. Four compartment fasciotomy. 3. Application of Adeel Chris compression dressing and knee immobilizer. SURGEON: Leighton Sears MD COPPER MINER: Marie Nugent, certified registered nursing carpenter assistant installer. SECOND AGING DEPARTMENT SUPERVISOR: Dannie Palafox PA-C ANESTHESIA: General endotracheal anesthesia by Dr. Galvan. COMPLICATIONS: No complications. DRAINS: No drains. OPERATIVE INDICATIONS: Lu Vidal is a patient who presented to the Emergency Room on Wednesday night. The patient was attended by me. The patient had sustained a fall, x-rays and CT were negative for fracture. The patient had a large non expansile hematoma. Compartment pressures were accomplished in the anterolateral, straight lateral, posterior and deep posterior compartments and were within normal limits. Please see the consultation note. The patient was admitted, the hematoma was aspirated in the Emergency Room. The patient was admitted with a large non expansile hematoma. Pros, cons, risks, and benefits of surgical approach were discussed at length with the patient and her family. The patient can no longer stand the discomfort and wished the surgery be accomplished. OPERATIVE PROCEDURE: After having obtained informed consent in the above fashion, after having identified side, site and procedure and critical pause/time-out, after the satisfactory induction of the anesthetic, the patient identified as Lu Vidal in the supine position with all bony prominences well padded. The left lower extremity was prepped and free draped in usual fashion for lower extremity surgery. The tourniquet had been applied but was not yet inflated. After having obtained informed consent, after the satisfactory induction of the anesthetic, after having identified side, site and procedure and critical pause/time-out, the patient identified as Lu Vidal in the supine position with all bony prominence well padded, tourniquet which had been applied was inflated to 350 mmHg. An incision was described approximately 6 inches in extent superficial to the lateral compartment. Incision was carried down through the skin and subcutaneous tissue. This having been accomplished, the hematoma was identified and approximately 75 mL of blood and the hematoma which was clearly described on the CT scan was identified, this was removed. Great care was taken to avoid injury to the peroneal nerve or any neurocirculatory structures. At this point in time, the lateral compartment was released prophylactically, there was no evidence of compartment syndrome; however, although there was no active bleeding when the tourniquet was deflated, the possibility of persistent bleed into compartments was entertained so the compartment release was laterally and at this point in time, dissection is carried down to the soleus, the deep posterior compartment was released at that point in time, the superficial posterior compartment was released as well. Going anteriorly again through the same incision, the anterior compartment is released. The wound was thoroughly irrigated. Hemostasis was controlled with electrocautery. The tourniquet which had been applied was deflated. There was no active bleeding accounting for any expansile aspect of the hematoma. Hemostasis was controlled. The wound was thoroughly irrigated. Closures in layers with interrupted Vicryl and joselin. Adeel Chris compression dressing and knee immobilizers applied. Leighton Sears MD
--- NOTE | 2018-01-10 23:44 | CARD ---
APPROVED REPORT EKG Measurement Heart [id number] <Conclusion> Normal sinus rhythm Left bundle branch block Abnormal ECG
--- NOTE | 2018-01-11 07:58 | CP.PCM.PN ---
Subjective - Date & Time of Evaluation Date of Evaluation: 01/11/18 Time of Evaluation: 07:58 - Subjective Subjective: Patient seen and examined at bedside comfortable. Pain is controlled with meds. Tolerating diet. Stayed overnight due to EKG changes seen postop in PACU. General warmth and recorded fever last night which has resolved overnight. No new complaints. Objective - Vital Signs/Intake and Output Vital Signs (last 24 hours): Temp Pulse Resp BP Pulse Ox 98.5 F 75 18 144/65 94 L 01/11/18 07:45 01/11/18 07:45 01/11/18 07:45 01/11/18 07:45 01/11/18 07:45 - Medications Medications: Current Medications Acetaminophen (Tylenol 325mg Tab) 650 mg PO Q4 PRN PRN Reason: Fever 101 degrees fahrenheit Last Admin: 01/11/18 00:11 Dose: 650 mg Atorvastatin Calcium (Lipitor) 40 mg PO HS [facility] Last Admin: 01/10/18 21:53 Dose: 40 mg Carvedilol (Coreg) 6.25 mg PO BID [facility] Last Admin: 01/10/18 17:26 Dose: 6.25 mg Hydrochlorothiazide (Microzide) 12.5 mg PO DAILY [facility] Last Admin: 01/10/18 11:30 Dose: Not Given Lactated Ringer's (Lactated Ringer's) 1,000 mls @ 50 mls/hr IV .Q20H [facility] Last Admin: 01/10/18 17:24 Dose: 50 mls/hr Insulin Human Lispro (Humalog) 0 units SC ACCU-CHECK [facility] PRN Reason: Protocol Last Admin: 01/10/18 23:00 Dose: Not Given Metformin HCl (Glucophage) 500 mg PO DAILY [facility] Last Admin: 01/10/18 11:14 Dose: Not Given Morphine Sulfate (Morphine) 2 mg IVP Q4 PRN PRN Reason: Pain, severe (8-10) Last Admin: 01/10/18 22:00 Dose: 2 mg Ondansetron HCl (Zofran Inj) 4 mg IVP ONCE PRN PRN Reason: Nausea/Vomiting Oxycodone/Acetaminophen (Percocet 5/325 Mg Tab) 1 tab PO Q4 PRN PRN Reason: Pain, moderate (4-7) Stop: 01/12/18 00:19 Valsartan (Diovan) 320 mg PO DAILY [facility] Last Admin: 01/10/18 11:29 Dose: Not Given - Labs Labs: 01/10/18 04:20 01/10/18 04:20 PT 12.0 Seconds (9.8-13.1) 01/09/18 06:55 INR 1.1 (0.9-1.2) 01/09/18 06:55 APTT 27.6 Seconds (25.6-37.1) 01/09/18 06:55 - Extremities Exam Additional comments: LLE: Knee imm in place, dressings clean dry and intact, Mild diffuse swelling to foot, sensation intact SP/DP/TN, motor intact EHL/FHL/TA/G, pedal pulse intact Assessment and Plan (1) Hematoma of left lower extremity Assessment & Plan: Patient is POD#1 s/p LLE evauation of hematoma and fasciotomy -pain control -postop fever is typical, resolved, will monitor, tylenol prn -strict ice and elevation of LLE -PT/OT 10% foot flat WB -care as per medicine -awaiting cardiology consult -clear to d/c from ortho standpoint once evaluated by PT/OT -case and plan d/w Dr. Sears in agreement Status: Acute
[2018-01-11] MEDS: Insulin Lispro (humaLOG) 100 Units/ml Inj SC SCH ×4 (08:27→22:19)
[2018-01-11] MEDS: Morphine 4 MG/ML VIAL IVP PRN (10:31)
[2018-01-11] MEDS: Lactated Ringer's 1,000 ML IV SCH (10:34)
--- NOTE | 2018-01-11 22:50 | CP.PCM.PN ---
Subjective - Date & Time of Evaluation Date of Evaluation: 01/11/18 Time of Evaluation: 12:00 - Subjective Subjective: Seen and examined at the bed side. Day#1 postop and C/O severe Pain & refused to be moved by the PT?OT. No fever or chills. Objective - Vital Signs/Intake and Output Vital Signs (last 24 hours): Temp Pulse Resp BP Pulse Ox 100.4 F H 69 20 115/67 94 L 01/11/18 19:17 01/11/18 19:17 01/11/18 19:17 01/11/18 19:17 01/11/18 19:17 Intake and Output: 01/11/18 01/12/18 18:59 06:59 Intake Total 1320 Output Total 750 Balance 570 - Medications Medications: Current Medications Acetaminophen (Tylenol 325mg Tab) 650 mg PO Q4 PRN PRN Reason: Fever 101 degrees fahrenheit Last Admin: 01/11/18 00:11 Dose: 650 mg Atorvastatin Calcium (Lipitor) 40 mg PO HS [facility] Last Admin: 01/11/18 21:43 Dose: 40 mg Carvedilol (Coreg) 6.25 mg PO BID [facility] Last Admin: 01/11/18 16:56 Dose: 6.25 mg Hydrochlorothiazide (Microzide) 12.5 mg PO DAILY [facility] Last Admin: 01/11/18 08:25 Dose: 12.5 mg Lactated Ringer's (Lactated Ringer's) 1,000 mls @ 50 mls/hr IV .Q20H [facility] Last Admin: 01/11/18 10:34 Dose: 50 mls/hr Insulin Human Lispro (Humalog) 0 units SC ACCU-CHECK [facility] PRN Reason: Protocol Last Admin: 01/11/18 22:19 Dose: Not Given Metformin HCl (Glucophage) 500 mg PO DAILY [facility] Last Admin: 01/11/18 08:25 Dose: 500 mg Morphine Sulfate (Morphine) 2 mg IVP Q4 PRN PRN Reason: Pain, severe (8-10) Last Admin: 01/11/18 10:31 Dose: 2 mg Ondansetron HCl (Zofran Inj) 4 mg IVP ONCE PRN PRN Reason: Nausea/Vomiting Oxycodone/Acetaminophen (Percocet 5/325 Mg Tab) 1 tab PO Q4 PRN PRN Reason: Pain, moderate (4-7) Stop: 01/12/18 00:19 Last Admin: 01/11/18 21:46 Dose: 1 tab Valsartan (Diovan) 320 mg PO DAILY [facility] Last Admin: 01/11/18 08:26 Dose: 320 mg - Labs Labs: 01/10/18 04:20 01/10/18 04:20 PT 12.0 Seconds (9.8-13.1) 01/09/18 06:55 INR 1.1 (0.9-1.2) 01/09/18 06:55 APTT 27.6 Seconds (25.6-37.1) 01/09/18 06:55 - Constitutional Appears: Well, In Acute Distress - Head Exam Head Exam: ATRAUMATIC, NORMAL INSPECTION, NORMOCEPHALIC - Eye Exam Eye Exam: EOMI, Normal appearance, PERRL Pupil Exam: NORMAL ACCOMODATION, PERRL - ENT Exam ENT Exam: Mucous Membranes Moist, Normal Exam - Neck Exam Neck Exam: Full ROM, Normal Inspection. absent: Lymphadenopathy - Respiratory Exam Respiratory Exam: Clear to Ausculation Bilateral, NORMAL BREATHING PATTERN - Cardiovascular Exam Cardiovascular Exam: REGULAR RHYTHM, +S1, +S2. absent: Murmur - GI/Abdominal Exam GI & Abdominal Exam: Soft, Normal Bowel Sounds. absent: Tenderness - Extremities Exam Extremities Exam: Joint Swelling, Normal Capillary Refill. absent: Pedal Edema Additional comments: +Splinted. +Neurovascular function intact. - Back Exam Back Exam: NORMAL INSPECTION - Neurological Exam Neurological Exam: Alert, Awake, CN II-XII Intact, Normal Gait, Oriented x3 - Psychiatric Exam Psychiatric exam: Normal Affect, Normal Mood - Skin Skin Exam: Dry, Intact, Normal Color, Warm Assessment and Plan (1) Hematoma of left lower extremity Assessment & Plan: S/P Evacuation PAin Medication PRN Status: Acute (2) Intractable pain Status: Acute (3) Diabetes mellitus Status: Chronic (4) Hypertension Status: Chronic (5) Dyslipidemia Status: Chronic
--- NOTE | 2018-01-12 04:57 | CON ---
CARDIOLOGY CONSULT DATE: REASON FOR CONSULTATION: New-onset left bundle-branch block. HISTORY OF PRESENT ILLNESS: The patient is an 87-year-old female who left [place] in 1946. She has no known prior cardiac history. She sustained a fall prior to her admission. The patient attributed the fall to losing balance. She did go to [employer] for shopping and as she was leaving the mall to go to the bus, one hand was carrying the merchandise and the other hand was using the walking cane; however, she fell by the sidewalk. EMS was activated. The patient sustained left leg hematoma and today she underwent incision and drainage. The patient denies any chest pain. Initial EKG revealed sinus bradycardia at a rate of 58 with moderate voltage criteria for LVH and subsequent EKG revealed sinus rhythm with left bundle-branch block. The patient does not recall experiencing palpitation or dizziness during her fall. SOCIAL HISTORY: Nonsmoker and nondrinker. She lives by herself. Her son and grandchildren live nearby. MEDICATIONS: Coreg 6.25 mg twice a day, Diovan 320 mg once a day, Glucophage 500 mg daily, Lipitor 40 mg once a day, hydrochlorothiazide 12.5 mg once a day, Percocet one tablet every 4 hours, morphine sulfate 2 mg intravenously every 4 hours, and Tylenol 650 mg every 6 hours p.r.n. for fever of 101 or above. REVIEW OF SYSTEMS: No nausea or vomiting. No fever or chills. No retrosternal chest pain. PHYSICAL EXAMINATION: GENERAL: The patient is an elderly female who does not appear to be in any acute distress. VITAL SIGNS: Blood pressure 129/56, heart rate 67, temperature 98.1, and respirations 20. HEENT: Normocephalic. CHEST: Clear. HEART: S1 and S2 regular. ABDOMEN: Soft. EXTREMITIES: Dressing was applied to the left leg after her recent incision and drainage. LABORATORY DATA: Today's hemoglobin and hematocrit 11.5 and 33.8, admitting hemoglobin and hematocrit were within normal limits. WBC and platelet count are within normal limits. SMA-7 yesterday; sodium 141, potassium 3.9, chloride 102, CO2 of 27, glucose 128, BUN 22, and creatinine 0.7. Two sets of troponins are negative. Venous Doppler of the left lower extremity, no evidence of DVT. Arterial Doppler, no significant arterial stenosis. X-ray of the tibia and fibula, mild infiltration changes, subcutaneous tissue could be related to trauma. No fracture or dislocation. ASSESSMENT: 1. New-onset left bundle-branch block. 2. Status post fall, requiring incision and drainage of left leg hematoma. 3. History of hypertension. 4. Diabetes mellitus. 5. Hyperlipidemia. The patient was on Crestor, Coreg, metformin, and Diovan and hydrochlorothiazide at home. RECOMMENDATIONS: Continue current Coreg 6.25 mg twice a day, Diovan 320 mg once a day, Glucophage 500 mg daily, Lipitor 40 mg once a day, and hydrochlorothiazide 12.5 mg once a day. Obtain repeat EKG and schedule the patient for an echocardiogram. Eugenio Waldrop MD
[2018-01-12] MEDS: Lactated Ringer's 1,000 ML IV SCH (06:41)
[2018-01-12] MEDS: Insulin Lispro (humaLOG) 100 Units/ml Inj SC SCH ×3 (08:48→16:09)
[2018-01-12] MEDS: Morphine 4 MG/ML VIAL IVP PRN ×2 (10:10→21:23)
--- NOTE | 2018-01-12 15:13 | CP.PCM.PN ---
Subjective - Date & Time of Evaluation Date of Evaluation: 01/12/18 Time of Evaluation: 15:10 - Subjective Subjective: Patient seen and examined with Dr. Sears. Her pain is much improved since yesterday. She was able to work with PT today however, had much difficulty ambulating. Objective - Vital Signs/Intake and Output Vital Signs (last 24 hours): Temp Pulse Resp BP Pulse Ox 99.1 F 64 18 113/72 95 01/12/18 12:00 01/12/18 12:00 01/12/18 12:00 01/12/18 12:00 01/12/18 12:00 - Medications Medications: Current Medications Acetaminophen (Tylenol 325mg Tab) 650 mg PO Q4 PRN PRN Reason: Fever 101 degrees fahrenheit Last Admin: 01/11/18 00:11 Dose: 650 mg Atorvastatin Calcium (Lipitor) 40 mg PO HS [facility] Last Admin: 01/11/18 21:43 Dose: 40 mg Carvedilol (Coreg) 6.25 mg PO BID [facility] Last Admin: 01/12/18 08:47 Dose: 6.25 mg Hydrochlorothiazide (Microzide) 12.5 mg PO DAILY [facility] Last Admin: 01/12/18 08:46 Dose: 12.5 mg Lactated Ringer's (Lactated Ringer's) 1,000 mls @ 50 mls/hr IV .Q20H [facility] Last Admin: 01/12/18 06:41 Dose: 50 mls/hr Insulin Human Lispro (Humalog) 0 units SC ACCU-CHECK [facility] PRN Reason: Protocol Last Admin: 01/12/18 08:48 Dose: 1 unit Metformin HCl (Glucophage) 500 mg PO DAILY [facility] Last Admin: 01/12/18 08:46 Dose: 500 mg Morphine Sulfate (Morphine) 2 mg IVP Q4 PRN PRN Reason: Pain, severe (8-10) Last Admin: 01/12/18 10:10 Dose: 2 mg Ondansetron HCl (Zofran Inj) 4 mg IVP ONCE PRN PRN Reason: Nausea/Vomiting Valsartan (Diovan) 320 mg PO DAILY [facility] Last Admin: 01/12/18 08:47 Dose: 320 mg - Labs Labs: 01/10/18 04:20 01/10/18 04:20 PT 12.0 Seconds (9.8-13.1) 01/09/18 06:55 INR 1.1 (0.9-1.2) 01/09/18 06:55 APTT 27.6 Seconds (25.6-37.1) 01/09/18 06:55 - Extremities Exam Additional comments: LLE: Knee imm in place, dressings clean dry and intact, Mild diffuse swelling to foot, sensation intact SP/DP/TN, motor intact EHL/FHL/TA/G, pedal pulse intact Assessment and Plan (1) Hematoma of left lower extremity Assessment & Plan: Patient is POD#2 s/p LLE evauation of hematoma and fasciotomy -pain control -PT/OT 10% foot flat WB -care as per medicine -awaiting rehab placement and cardiology clearance -clear to d/c to rehab from ortho standpoint -case and plan d/w Dr. Sears in agreement Status: Acute
--- NOTE | 2018-01-12 18:35 | CARD ---
APPROVED REPORT EXAM: Two-dimensional and M-mode echocardiogram with Doppler and color Doppler. Other Information Quality : GoodRhythm : NSR INDICATION Abnormal EKG/Arrhythmia 2D DIMENSIONS IVSd1.57 (0.7-1.1cm)LVDd3.91 (3.9-5.9cm) LVOT Diameter2.11 (1.8-2.4cm)PWd0.94 (0.7-1.1cm) IVSs1.34 (0.8-1.2cm)LVDs2.83 (2.5-4.0cm) FS (%) 27.7 %PWs1.27 (0.8-1.2cm) LVEF (%)55.0 (>50%) M-Mode DIMENSIONS Left Atrium (MM)3.81 (2.5-4.0cm)IVSd1.29 (0.7-1.1cm) Aortic Root2.86 (2.2-3.7cm)LVDd4.74 (4.0-5.6cm) Aortic Cusp Exc.1.93 (1.5-2.0cm)PWd1.13 (0.7-1.1cm) IVSs1.70 cmFS (%) 41 % LVDs2.78 (2.0-3.8cm)PWs1.57 cm Mitral Valve MV E Ufllbqzk08.3cm/sMV DECEL [id number] A Oculxmel83.1cm/s MV [id number]/A ratio0.6MVA (PHT)2.21cm2 TDI Lateral E' Peak V6.52cm/sMedial E' Peak V5.05cm/sE/Lateral E'7.9 E/Medial E'10.2 Pulmonary Valve PV Peak Plyuwxkj63.2cm/s Tricuspid Valve TR Peak Vcwquzar076bu/sRAP PZRZWBKJ64smMdFU Peak Gr.24mmHg [id number] LEFT VENTRICLE The left ventricle is normal size. There is mild to moderate concentric left ventricular hypertrophy. The left ventricular function is normal. The left ventricular ejection fraction is within the normal range. There is normal LV segmental wall motion. Transmitral Doppler flow pattern is Grade I-abnormal relaxation pattern. RIGHT VENTRICLE The right ventricle is normal size. There is normal right ventricular wall thickness. The right ventricular systolic function is normal. ATRIA The left atrium size is normal. The right atrium size is normal. AORTIC VALVE The aortic valve is not well visualized. No aortic regurgitation is present. There is no aortic valvular stenosis. MITRAL VALVE The mitral valve is mildly thickened. There is no mitral valve stenosis. There is no mitral valve regurgitation noted. TRICUSPID VALVE The tricuspid valve is normal in structure. There is mild pulmonary hypertension. PULMONIC VALVE The pulmonary valve is normal in structure. There is no pulmonic valvular regurgitation. GREAT VESSELS The aortic root is normal in size. The IVC is normal in size and collapses >50% with inspiration. PERICARDIAL EFFUSION There is a trace loculated anterior pericardial effusion. <Conclusion> The left ventricle is normal size. There is mild to moderate concentric left ventricular hypertrophy. The left ventricular function is normal. The left ventricular ejection fraction is within the normal range. There is normal LV segmental wall motion. Transmitral Doppler flow pattern is Grade I-abnormal relaxation pattern. There is mild pulmonary hypertension.
--- NOTE | 2018-01-12 19:41 | PN ---
DATE: SUBJECTIVE: The patient denies any chest pain. She of left leg pain. PHYSICAL EXAMINATION: VITAL SIGNS: Blood pressure 112/67, heart rate 66, temperature 100, and respirations 20. HEENT: Normocephalic. CHEST: Clear. HEART: S1 and S2 regular. EXTREMITIES: No right leg pedal edema. LABORATORY DATA: Today's blood sugar is 151 and 119. ASSESSMENT: 1. Status post fall. 2. New onset left bundle-branch block. 3. Status post incision and drainage of left leg hematoma related to the fall. 4. Hypertension and diabetes mellitus. 5. Hyperlipidemia. RECOMMENDATIONS: Continue Coreg 6.25 mg twice a day, Diovan 320 mg once a day, Glucophage 500 mg once a day, Lipitor 40 mg once a day, and hydrochlorothiazide 12.5 mg once a day. I would review the echocardiac study performed today. Eugenio Waldrop MD
--- NOTE | 2018-01-13 00:14 | CP.PCM.PN ---
Subjective - Date & Time of Evaluation Date of Evaluation: 01/12/18 Time of Evaluation: 11:15 - Subjective Subjective: Seen and examined at the bed side. Continue to complain the left Leg pain. Objective - Vital Signs/Intake and Output Vital Signs (last 24 hours): Temp Pulse Resp BP Pulse Ox 98.1 F 72 20 104/55 L 96 01/12/18 19:35 01/12/18 19:35 01/12/18 19:35 01/12/18 19:35 01/12/18 19:35 Intake and Output: 01/12/18 01/13/18 18:59 06:59 Intake Total 1150 Balance 1150 - Medications Medications: Current Medications Acetaminophen (Tylenol 325mg Tab) 650 mg PO Q4 PRN PRN Reason: Fever 101 degrees fahrenheit Last Admin: 01/11/18 00:11 Dose: 650 mg Atorvastatin Calcium (Lipitor) 40 mg PO HS [facility] Last Admin: 01/12/18 21:13 Dose: 40 mg Carvedilol (Coreg) 6.25 mg PO BID [facility] Last Admin: 01/12/18 16:10 Dose: 6.25 mg Hydrochlorothiazide (Microzide) 12.5 mg PO DAILY [facility] Last Admin: 01/12/18 08:46 Dose: 12.5 mg Lactated Ringer's (Lactated Ringer's) 1,000 mls @ 50 mls/hr IV .Q20H [facility] Last Admin: 01/12/18 06:41 Dose: 50 mls/hr Insulin Human Lispro (Humalog) 0 units SC ACCU-CHECK [facility] PRN Reason: Protocol Last Admin: 01/12/18 16:09 Dose: Not Given Metformin HCl (Glucophage) 500 mg PO DAILY [facility] Last Admin: 01/12/18 08:46 Dose: 500 mg Morphine Sulfate (Morphine) 2 mg IVP Q4 PRN PRN Reason: Pain, severe (8-10) Last Admin: 01/12/18 21:23 Dose: 2 mg Ondansetron HCl (Zofran Inj) 4 mg IVP ONCE PRN PRN Reason: Nausea/Vomiting Valsartan (Diovan) 320 mg PO DAILY [facility] Last Admin: 01/12/18 08:47 Dose: 320 mg - Labs Labs: 01/10/18 04:20 01/10/18 04:20 PT 12.0 Seconds (9.8-13.1) 01/09/18 06:55 INR 1.1 (0.9-1.2) 01/09/18 06:55 APTT 27.6 Seconds (25.6-37.1) 01/09/18 06:55 Assessment and Plan (1) Hematoma of left lower extremity Status: Acute (2) Intractable pain Status: Acute (3) Diabetes mellitus Status: Chronic (4) Hypertension Status: Chronic (5) Dyslipidemia Status: Chronic
[2018-01-13] MEDS: Insulin Lispro (humaLOG) 100 Units/ml Inj SC SCH ×4 (00:29→16:28)
[2018-01-13] MEDS: Morphine 4 MG/ML VIAL IVP PRN ×3 (01:16→16:24)
[2018-01-13] MEDS: Lactated Ringer's 1,000 ML IV SCH (02:30)
--- NOTE | 2018-01-13 10:53 | CP.PCM.PN ---
Subjective - Date & Time of Evaluation Date of Evaluation: 01/13/18 Time of Evaluation: 10:50 - Subjective Subjective: Patient refusing PT at this time. Encouraged participation. Denies CP/SOB/ dizziness. Denies numbnes/tingling. Pain in leg is controlled. Objective - Vital Signs/Intake and Output Vital Signs (last 24 hours): Temp Pulse Resp BP Pulse Ox 98.4 F 101 H 18 134/68 93 L 01/13/18 08:00 01/13/18 09:31 01/13/18 08:00 01/13/18 09:31 01/13/18 08:00 Intake and Output: 01/13/18 01/13/18 06:59 18:59 Intake Total 100 Output Total 150 Balance -50 - Medications Medications: Current Medications Acetaminophen (Tylenol 325mg Tab) 650 mg PO Q4 PRN PRN Reason: Fever 101 degrees fahrenheit Last Admin: 01/11/18 00:11 Dose: 650 mg Atorvastatin Calcium (Lipitor) 40 mg PO HS [facility] Last Admin: 01/12/18 21:13 Dose: 40 mg Carvedilol (Coreg) 6.25 mg PO BID [facility] Last Admin: 01/13/18 09:31 Dose: 6.25 mg Hydrochlorothiazide (Microzide) 12.5 mg PO DAILY [facility] Last Admin: 01/13/18 09:32 Dose: 12.5 mg Lactated Ringer's (Lactated Ringer's) 1,000 mls @ 50 mls/hr IV .Q20H [facility] Last Admin: 01/13/18 02:30 Dose: 50 mls/hr Insulin Human Lispro (Humalog) 0 units SC ACCU-CHECK [facility] PRN Reason: Protocol Last Admin: 01/13/18 07:02 Dose: Not Given Metformin HCl (Glucophage) 500 mg PO DAILY [facility] Last Admin: 01/13/18 09:32 Dose: 500 mg Morphine Sulfate (Morphine) 2 mg IVP Q4 PRN PRN Reason: Pain, severe (8-10) Last Admin: 01/13/18 09:35 Dose: 2 mg Ondansetron HCl (Zofran Inj) 4 mg IVP ONCE PRN PRN Reason: Nausea/Vomiting Valsartan (Diovan) 320 mg PO DAILY [facility] Last Admin: 01/13/18 09:31 Dose: 320 mg - Labs Labs: 01/10/18 04:20 01/10/18 04:20 PT 12.0 Seconds (9.8-13.1) 01/09/18 06:55 INR 1.1 (0.9-1.2) 01/09/18 06:55 APTT 27.6 Seconds (25.6-37.1) 01/09/18 06:55 - Extremities Exam Additional comments: LLE: mild swelling, +ROM ankle/toes full without pain. No pain with PROM of toes +DP/PT pulses, calves soft NT neg homans,. Dressing changed, Incision intact, scant elsa drainage. Compartments soft. Toes warm and cap refill < 2 sec Assessment and Plan (1) Hematoma of left lower extremity Assessment & Plan: POD#2 s/p LLE fasciotomy -orthopedically stable PT/OT VTE proph Patient complaining of increased pain from immobilizer, will encourage ankle ROM , OOB, knee ROM as tolerated d/w Dr. Sears, agrees with above Status: Acute
[2018-01-13 12:59] VITALS: O2SAT 96
[2018-01-13 16:06] VITALS: BP 129/74; PULSE 63; RESP 20; TEMP 98.1
--- NOTE | 2018-01-13 19:50 | PN ---
DATE: SUBJECTIVE: The patient denies any chest pain or shortness of breath at this time. No reported ventricular arrhythmia. PHYSICAL EXAMINATION: VITAL SIGNS: Blood pressure 100/54, heart rate 70, temperature 98.2, and respirations 18. HEENT: Normocephalic. CHEST: Clear. HEART: S1 and S2 regular. EXTREMITIES: No edema. LABORATORY DATA: I did review the echocardiac study, which was performed yesterday and it revealed [id number]-[id number] concentric LVH with normal systolic function and reduce diastolic compliance, and mild pulmonary hypertension. ASSESSMENT: 1. Status post incision and drainage of left leg hematoma. 2. Intermittent left bundle-branch block, most likely rate related. 3. Mild pulmonary hypertension. 4. Systemic hypertension. RECOMMENDATIONS: Continue current Coreg 6.25 mg twice a day, Diovan 320 mg once a day, Lipitor 40 mg once a day, and hydrochlorothiazide 12.5 mg once a day. The patient will be transferred to subacute rehab. Eugenio Waldrop MD
--- NOTE | 2018-01-14 01:05 | CP.PCM.DIS ---
Provider - Provider Date of Admission: 01/10/18 12:43 Attending physician: Jadiel Fang MD Time Spent in preparation of Discharge (in minutes): 25 Diagnosis - Discharge Diagnosis (1) Hematoma of left lower extremity Status: Acute Priority: Medium (2) Intractable pain Status: Acute Priority: Low (3) Diabetes mellitus Status: Chronic (4) Hypertension Status: Chronic (5) Dyslipidemia Status: Chronic Priority: Low Hospital Course - Lab Results Lab Results: Most Recent Lab Values WBC 6.9 K/uL (4.8-10.8) 01/10/18 04:20 RBC 3.80 Mil/uL (3.80-5.20) 01/10/18 04:20 Hgb 11.5 g/dL (12.0-16.0) L 01/10/18 04:20 Hct 33.8 % (34.0-47.0) L 01/10/18 04:20 MCV 88.8 fl (81.0-99.0) 01/10/18 04:20 MCH 30.2 pg (27.0-31.0) 01/10/18 04:20 MCHC 34.0 g/dL (33.0-37.0) 01/10/18 04:20 RDW 14.2 % (11.5-14.5) 01/10/18 04:20 Plt Count 151 K/uL (130-400) 01/10/18 04:20 MPV 9.5 fl (7.2-11.7) 01/08/18 17:05 Neut % (Auto) 61.2 % (50.0-75.0) 01/08/18 17:05 Lymph % (Auto) 24.6 % (20.0-40.0) 01/08/18 17:05 [place] % (Auto) 11.2 % (0.0-10.0) H 01/08/18 17:05 Eos % (Auto) 2.0 % (0.0-4.0) 01/08/18 17:05 Baso % (Auto) 1.0 % (0.0-2.0) 01/08/18 17:05 Neut # (Auto) 4.1 K/uL (1.8-7.0) 01/08/18 17:05 Lymph # (Auto) 1.6 K/uL (1.0-4.3) 01/08/18 17:05 [place] # (Auto) 0.7 K/uL (0.0-0.8) 01/08/18 17:05 Eos # (Auto) 0.1 K/uL (0.0-0.7) 01/08/18 17:05 Baso # (Auto) 0.1 K/uL (0.0-0.2) 01/08/18 17:05 PT 12.0 Seconds (9.8-13.1) 01/09/18 06:55 INR 1.1 (0.9-1.2) 01/09/18 06:55 APTT 27.6 Seconds (25.6-37.1) 01/09/18 06:55 Sodium 141 mmol/l (132-148) 01/10/18 04:20 Potassium 3.9 MMOL/L (3.6-5.0) 01/10/18 04:20 Chloride 102 mmol/L (98-107) 01/10/18 04:20 Carbon Dioxide 27 mmol/L (22-30) 01/10/18 04:20 Anion Gap 16 (10-20) 01/10/18 04:20 BUN 22 mg/dl (7-17) H 01/10/18 04:20 Creatinine 0.7 mg/dl (0.7-1.2) 01/10/18 04:20 Est GFR ( Amer) > 60 01/10/18 04:20 Est GFR (Non-Af Amer) > 60 01/10/18 04:20 POC Glucose (mg/dL) 85 mg/dL (65-110) 01/13/18 16:11 Random Glucose 128 mg/dL (65-105) H 01/10/18 04:20 Calcium 9.6 mg/dL (8.4-10.2) 01/10/18 04:20 Magnesium 1.8 MG/DL (1.6-2.3) 01/10/18 04:20 Total Bilirubin 0.6 mg/dl (0.2-1.3) 01/10/18 04:20 AST 23 U/L (14-36) 01/10/18 04:20 ALT 25 U/L (9-52) 01/10/18 04:20 Alkaline Phosphatase 58 U/L (38-126) 01/10/18 04:20 Total Creatine Kinase 77 U/L (30-135) 01/08/18 17:49 Troponin I < 0.0120 ng/mL (0.00-0.120) 01/11/18 00:46 Total Protein 7.2 G/DL (6.3-8.2) 01/10/18 04:20 Albumin 3.7 g/dL (3.5-5.0) 01/10/18 04:20 Globulin 3.5 gm/dL (2.2-3.9) 01/10/18 04:20 Albumin/Globulin Ratio 1.0 (1.0-2.1) 01/10/18 04:20 Blood Type O POSITIVE 01/08/18 17:40 Antibody Screen Negative 01/08/18 17:40 BBK History Checked Patient has bt 01/08/18 17:40 Discharge Exam - Head Exam Head Exam: ATRAUMATIC, NORMAL INSPECTION, NORMOCEPHALIC Discharge Plan - Follow Up Plan Condition: GUARDED Disposition: REHAB FACILITY/REHAB UNIT
== END 2018-01-13 16:45 | DRG 581 ==
LOC: H.ER 16:37 → H.ERHOLD 20:51 → H.TEL 23:36 → OBSVTOIN 01-10 12:43
PROVIDERS: ADMIT Internal Medicine; ATTEND Internal Medicine
PROC: 0J9P0ZZ Drainage of Left Lower Leg Subcutaneous Tissue and Fascia, Open Approach (ICD-10-PCS; principal; 2018-01-10 12:00)
DX: S80.12XA Contusion of left lower leg, initial encounter (principal); I27.20 Pulmonary hypertension, unspecified; I44.7 Left bundle-branch block, unspecified; E11.9 Type 2 diabetes mellitus without complications; I10 Essential (primary) hypertension; R50.82 Postprocedural fever; W10.1XXA Fall (on)(from) sidewalk curb, initial encounter; E78.5 Hyperlipidemia, unspecified; E78.00 Pure hypercholesterolemia, unspecified; Y92.480 Sidewalk as the place of occurrence of the external cause

== ENCOUNTER 2018-02-13 17:46 | Emergency (ER) | payer MEDICARE, MEDICAID ==
[2018-02-13 17:46] VITALS: BMI 26.1
[2018-02-13 17:51] VITALS: O2SAT 98
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
[2018-02-13] MEDS ORDERED: Silver Sulfadiazine 1% CREAM (50 gm) TOP STA (18:26)
[2018-02-13] MEDS ORDERED: Silver Sulfadiazine 1% CREAM (50 gm) ONE (18:29)
[2018-02-13 19:11] VITALS: BP 150/70; PULSE 88; RESP 19; TEMP 98
== END 2018-02-13 19:12 | disposition home or self-care (01) ==
LOC: H.ER 17:46
DX: T25.221A Burn of second degree of right foot, initial encounter (principal); E11.9 Type 2 diabetes mellitus without complications; E78.00 Pure hypercholesterolemia, unspecified; I10 Essential (primary) hypertension; Z79.84 Long term (current) use of oral hypoglycemic drugs

== ENCOUNTER 2018-11-06 23:09 | Emergency (ER) | payer MEDICARE, MEDICAID ==
[2018-11-06 23:09] VITALS: BMI 26.1
[2018-11-06 23:14] VITALS: TEMP 98.5
--- NOTE | 2018-11-07 00:26 | ED PDOC ---
Syncope/Near Syncope/Dizziness Time Seen by Provider: 11/06/18 23:17 Chief Complaint (Nursing): Dizziness/Lightheaded Chief Complaint (Provider): Generalized Weakness History Per: Patient History/Exam Limitations: no limitations Onset/Duration Of Symptoms: Hrs (x2) Current Symptoms Are (Timing): Still Present Additional Complaint(s): 88 y/o [place] female with a PMHx of HTN and DM presents to the ED for evaluation of generalized weakness, onset two hours ago. Patient reports of developing acute weakness, feeling like she may fall. Patient concerned she may not be able to support her weight thus sat down and used life alert button. Patient reports of eating normally today. Otherwise, patient denies no actual dizziness, headache, nausea, vomiting, chest pain and shortness of breath. PMD: Ulysses Pierre Past Medical History Reviewed: Historical Data, Nursing Documentation, Vital Signs Vital Signs: Last Vital Signs Temp 98.5 F 11/06/18 23:11 Pulse 69 11/06/18 23:11 Resp 18 11/06/18 23:11 BP 164/91 H 11/06/18 23:11 Pulse Ox 96 11/06/18 23:11 - Medical History PMH: Back Problems, Diabetes, HTN, Hypercholesterolemia, Hyperlipidemia Denies: Chronic Kidney Disease - Surgical History Other surgeries: Left ankle fracture repair in January 2018 - Family History Family History: States: Hypertension - Social History Current smoker - smoking cessation education provided: No Alcohol: None Drugs: Denies - Immunization History Hx Tetanus Toxoid Vaccination: No Hx Influenza Vaccination: No - Home Medications Home Medications: Ambulatory Orders Medication Instructions Recorded Carvedilol [Coreg] 6.25 mg PO BID 06/13/16 Rosuvastatin Calcium [Crestor] 20 mg PO HS 06/13/16 Valsartan/Hydrochlorothiazide 1 tab PO DAILY 06/13/16 [Valsartan-Hctz 320-12.5 mg Tab] metFORMIN [glucOPHAGE] 500 mg PO DAILY 06/13/16 Acetaminophen [Tylenol 325mg tab] 650 mg PO Q4 PRN tab 01/13/18 Cephalexin [Keflex] 500 mg PO TID #21 capsule 02/13/18 - Allergies Allergies/Adverse Reactions: Allergies Allergy/AdvReac Type Severity Reaction Status Date / Time No Known Allergies Allergy Verified 02/13/18 17:49 Review of Systems ROS Statement: Except As Marked, All Systems Reviewed And Found Negative Constitutional: Positive for: Weakness Cardiovascular: Negative for: Chest Pain Respiratory: Negative for: Shortness of Breath Gastrointestinal: Negative for: Nausea, Vomiting Neurological: Negative for: Dizziness Physical Exam - Reviewed Nursing Documentation Reviewed: Yes Vital Signs Reviewed: Yes - Physical Exam Appears: Positive for: No Acute Distress Head Exam: Positive for: ATRAUMATIC, NORMOCEPHALIC Skin: Positive for: Normal Color, Warm, Dry Eye Exam: Positive for: Normal appearance, EOMI, PERRL Neck: Positive for: Normal, Painless ROM, Supple Cardiovascular/Chest: Positive for: Regular Rate, Rhythm. Negative for: Murmur Respiratory: Positive for: Normal Breath Sounds. Negative for: Respiratory Distress Gastrointestinal/Abdominal: Positive for: Normal Exam, Soft. Negative for: Tenderness Back: Positive for: Normal Inspection. Negative for: L CVA Tenderness, R CVA Tenderness, Vertebral Tenderness Extremity: Positive for: Normal ROM. Negative for: Pedal Edema, Deformity Neurologic/Psych: Positive for: Alert, Oriented. Negative for: Motor/Sensory Deficits - Laboratory Results Result Diagrams: 11/06/18 00:04 11/06/18 00:04 - ECG ECG Rhythm: Positive for: Sinus Rhythm (with arrhythmia at 2308), Nonspecific Changes Rate: 79 O2 Sat by Pulse Oximetry: 96 (RA) Pulse Ox Interpretation: Normal Medical Decision Making Medical Decision Making: Time: 2320 Impression: 88 y/o [place] female with non-specific weakness. Plan: -- EKG -- CMP -- Troponin I -- ED Urine Dipstick -- CBC with Differentials -- PTT -- Prothrombin Time -- Heplock Insertion Time: 0329 -- Labs reviewed and demonstrate no clinically significant abnormality. On re- evaluation, patient reports an improvement of symptoms. Patient is able to ambulate in the ED. Patient is stable for discharge with a diagnosis of weakness. Patient instructed to follow up with PMD. Scribe Attestation: Documented by Andrew Odonnell, acting as a scribe for Jimmy Mcclain MD. Provider Scribe Attestation: All medical record entries made by the Scribe were at my direction and personally dictated by me. I have reviewed the chart and agree that the record accurately reflects my personal performance of the history, physical exam, medical decision making, and the department course for this patient. I have also personally directed, reviewed, and agree with the discharge instructions and disposition. Disposition - Clinical Impression Clinical Impression: Weakness - Patient ED Disposition Is Patient to be Admitted: No Counseled Patient/Family Regarding: Studies Performed, Diagnosis, Need For Followup - Disposition Disposition: Routine/Home Disposition Time: 03:29 Condition: STABLE Instructions: Weakness (ED) Forms: [facility] (Yakut)
[2018-11-07 00:43] LABS: BASO % 0.8 % (0.0-2.0); EOS # 0.2 K/uL (0.0-0.7); EOS % 4.5 % (0.0-4.0); LYMPH # 1.4 K/uL (1.0-4.3); LYMPH % 30.2 % (20.0-40.0); MEAN CORPUSCULAR HEMOGLOBIN 29.2 pg (27.0-31.0); MEAN CORPUSCULAR HGB CONC 32.8 g/dL (33.0-37.0); MEAN PLATELET VOLUME 10.3 fl (7.2-11.7); MONO # 0.6 K/uL (0.0-0.8); MONO % 12.9 % (0.0-10.0); NEUT # 2.4 K/uL (1.8-7.0); NEUT % 51.6 % (50.0-75.0); RBC 4.46 Mil/uL (3.80-5.20); RED CELL DISTRIBUTION WIDTH 14.8 % (11.5-14.5); WHITE BLOOD COUNT 4.6 K/uL (4.8-10.8)
[2018-11-07 00:53] LABS: ALB/GLOB RATIO 1.1 (1.0-2.1); ALBUMIN 4.1 g/dL (3.5-5.0); ALT/SGPT 22 U/L (9-52); AST/SGOT 26 U/L (14-36); BLOOD UREA NITROGEN 18 mg/dl (7-17); GFR NON-AFRICAN AMERICAN > 60
[2018-11-07 01:41] LABS: PARTIAL THROMBOPLASTIN TIME 29.3 Seconds (25.6-37.1); PROTHROMBIN TIME 11.7 Seconds (9.8-13.1)
[2018-11-07 06:10] VITALS: BP 155/87; PULSE 71; RESP 19; O2SAT 99
--- NOTE | 2018-11-07 09:15 | CARD ---
APPROVED REPORT Date of service: 11/06/2018 EKG Measurement Heart [id number] <Conclusion> Normal sinus rhythm Moderate voltage criteria for LVH, may be normal variant Borderline ECG
--- NOTE | 2018-11-07 11:38 | RAD ---
Date of service: 11/07/2018 HISTORY: weakness COMPARISON: 01/08/2018 FINDINGS: LUNGS: No active pulmonary disease. PLEURA: No pleural effusion or pneumothorax. Eight mildly elevated right hemidiaphragm unchanged from prior examination. CARDIOVASCULAR: No aortic atherosclerotic calcification present. Normal cardiac size. No pulmonary vascular congestion. OSSEOUS STRUCTURES: No significant abnormalities. VISUALIZED UPPER ABDOMEN: Normal. OTHER FINDINGS: None. IMPRESSION: No active disease.
== END 2018-11-07 06:09 | disposition home or self-care (01) ==
LOC: H.ER 23:09 → UNDOADMOB 11-07 02:46 → H.ERHOLD 11-07 02:46 → H.ER 11-07 06:09
DX: R53.1 Weakness (principal); E11.9 Type 2 diabetes mellitus without complications; I10 Essential (primary) hypertension; Z79.84 Long term (current) use of oral hypoglycemic drugs; E78.00 Pure hypercholesterolemia, unspecified